=== PATIENT | male | born 1940 | race Caucasian/White ===

== ENCOUNTER 2016-10-15 13:42 | Inpatient (IN) | payer MEDICARE, BC ==
[~2016-10-15] VITALS: Ht 185.4 cm; Wt 76.2 kg
[~2016-10-15 13:42] MED LIST: LEVOXYL125 MCG PO; VITAMIN B-121000 MCG PO; VITAMIN B-12500 MC1 PO; [UNRECOGNIZED DRUG - OTHER] PO
--- NOTE | 2016-10-15 15:00 | NUR ---
PATIENT ARRIVED FROM [facility] WITH AND SON. PATIENT IS ALERT/ORIENT X4. DIAG: CVA POST OP AAA. ADMISSION PAPERS SIGNED BY PATIENT. V/S TAKEN. WT TAKEN. H/P TAKEN. MEDICATIONS ORDERED. DR Kavin ZHU AWARE OF.
[2016-10-15 15:14] VITALS: BP 137/79; BMI 22.3
--- NOTE | 2016-10-15 18:25 | NUR ---
PATIENT STATED HE WAS NOT HUNGRY. DID NOT EAT ANY OF HIS SUPPER. DRANK 240CC OF WATER SINCE ADMISSION
--- NOTE | 2016-10-15 19:30 | NUR ---
PT IS RESTING IN BED WITH EYES OPEN. ALERT AND ORIENTED X 3. DENIES ACUTE DISCOMFORT AT THIS TIME. VSS. MIDLINE CHEST INCISION AND LEFT LEG INCISION ARE HEALING WELL. NO SLURRING OF SPEECH NOTED AT THIS TIME. SR'S ARE UP X 3 IN BED. CALL LIGHT AND BEDSIDE TABLE ARE WITHIN EASY.
--- NOTE | 2016-10-15 19:30 | NUR ---
PT IS RESTING IN BED VISITING WITH FAMILY MEMBERS. ALERT AND ORIENTED X 3. DENIES PAIN OR DISCOMFORT AT THIS TIME. VSS. O2 IS ON @ 3.5 LPM PER NC. PT DENIES NEEDS AT THIS TIME. SR'S ARE UP X 3 IN BED. CALL LIGHT AND BEDSIDE TABLE ARE WITHIN EASY REACH.
[2016-10-15] MEDS ORDERED: PRAVACHOL20 MG PO (20:03)
[2016-10-15] MEDS ORDERED: TOPROL XL25 MG PO (20:04)
[2016-10-15] MEDS ORDERED: COZAAR50 MG PO (20:04)
[2016-10-15] MEDS ORDERED: COLACE100 MG PO (20:04)
[2016-10-15] MEDS ORDERED: HYDROCODON-ACE1 EAC7 PO (20:05)
[2016-10-15] MEDS ORDERED: ASPIRIN EC81 M1 PO (20:06)
--- NOTE | 2016-10-15 21:17 | NUR ---
PT IS RESTING QUIETLY IN BED WITH EYES CLOSED. RESPS ARE EVEN AND UNLABORED. NO ACUTE DISTRESS NOTED.
[2016-10-15 21:42] VITALS: BP 136/78
--- NOTE | 2016-10-16 00:01 | NUR ---
PT ASSISTED TO THE BATHROOM WITH CGA ASSIST. VOIDED WITHOUT DIFFICULTY. NO FURTHER NEEDS VOICED.
--- NOTE | 2016-10-16 03:02 | NUR ---
PT IS RESTING QUIELTY IN BED WITH EYES CLOSED. RESPS ARE EVEN AND UNLABORED. NO ACUTE DISTRESS NOTED.
--- NOTE | 2016-10-16 05:30 | NUR ---
respirations regular and unlabored, no s/s of acute distress. respirations regular and unlabored.
--- NOTE | 2016-10-16 06:11 | NUR ---
PT RESTING IN BED WITH EYES OPEN. NO NEEDS VOICED. AWAITING THERAPY EVALS THIS AM.
[2016-10-16 06:36] LABS: BASOPHILS 0.2 % (0.0-2.0); EOSINOPHILS 3.2 % (0-7); HEMATOCRIT 34.2 % (42.0-54.0); HEMOGLOBIN 11.1 g/dL (13.5-17.5); IMMATURE GRANULOCYTES 0.7 % (0-5); LYMPHOCYTES 11.5 % (15-50); MCH 29.8 pg (26.0-34.0); MCHC 32.5 g/dL (31.0-37.0); MCV 91.7 fL (80.0-100.0); MEAN PLATELET VOLUME 11.5 fL (7.4-10.4); MONOCYTES 10.8 % (2-11); NEUTROPHILS 73.6 % (40-80); RBC 3.73 10x6/uL (4.20-6.10); RDW 13.4 % (11.5-14.5); WBC 12.2 10x3/uL (4.8-10.8)
[2016-10-16 06:37] LABS: PLATELET COUNT 216 10x3/uL (130-400)
[2016-10-16 06:51] LABS: ANION GAP 14.8 mmol/L (8-16); CALCIUM 8.9 mg/dL (8.5-10.1); CREATININE - SERUM 1.2 mg/dL (0.6-1.3); POTASSIUM - SERUM 4.8 mmol/L (3.5-5.1)
[2016-10-16 07:00] VITALS: BP 115/75
--- NOTE | 2016-10-16 07:47 | NUR ---
PATIENT SITTING UP IN BED EATTING BREAKFAST. ALERT/ORIENT X4. WITH SOME SCRAMBLED SPEACH. CALL LIGHT WITHIN REACH. VOICES NO NEEDS
--- NOTE | 2016-10-16 10:30 | NUR ---
PATIENT TURNED MACHINE II ENGRAVER LIGHT TO USE BATHROOM. STAND BY ASST FROM BED TO WHEELCHAIR AND WHEELCHAIR ONTO TOILET. ABLE TO DO OWN DANTE CARE.
--- NOTE | 2016-10-16 12:00 | NUR ---
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 DIET PUT IN PER PATIENT REQUEST.
--- NOTE | 2016-10-16 13:01 | NUR ---
Pt. continues to be stable. visiting. Staff assisting with adl's. No signs of discomfort or distress.
--- NOTE | 2016-10-16 14:01 | NUR ---
DR. Kavin ZHU INTO SEE PATIENT. NEW ORDERS RECIEVED.
--- NOTE | 2016-10-16 16:22 | NUR ---
PATIENT HAS MULTIPLE FAMILY MEMBERS VISITING IN ROOM. VOICES NO NEEDS AT THIS TIME.
--- NOTE | 2016-10-16 19:30 | NUR ---
PT RESTING QUIETLY, SENTENCES DON'T COINCIDE WITH CONVERSATION. PT SMILES APPROPRIATELY, NO S/S OF ACUTE OF DISTRESS.
[2016-10-16 22:05] VITALS: BP 113/67
--- NOTE | 2016-10-17 01:16 | NUR ---
PT RESTING SEMI GRIFFITH POSITION, RESPIRATIONS REGULAR AND UNLABORED, EYES CLOSED, NO S/S OF ACUTE DISTRESS.
--- NOTE | 2016-10-17 04:10 | NUR ---
PT AWAKE, ASSISTED SBA WHILE PT AMBULATED TO BATHROOM, PT GAIT APPEARS SOMEWHAT UNSTABLE, PT SENTENCES DON'T RESPOND APPROPRIATELY WITH QUESTION - FOR EXAMPLE 'HAVE YOU BEEN ABLE TO SLEEP' STATED 'MY SHOULD BE HERE SOON.' PLEASANT, MOBILITY SBA, RESPIRATIONS REGULAR AND UNLABORED, NO S/S OF ACUTE DISTRESS.
[2016-10-17 09:03] VITALS: BP 133/72
[2016-10-17 10:48] VITALS: Ht 185.4 cm; Wt 76.2 kg
--- NOTE | 2016-10-17 13:57 | RHP ---
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 HISTORY OF PRESENT ILLNESS: The patient is a 76-year-old gentleman who is postop day #5 of a repair of an ascending aortic aneurysm with dissection and rupture with hemopericardium on 10/10/2016. Postop, he had a left parietal ischemic infarct. The patient's only past medical history is hypothyroidism. He was awakened by abdominal pain overnight with numbness and weakness in his lower extremities, taken to local ED at [facility] where he was diagnosed with dissecting aortic aneurysm that extended from the ascending down to the level of the renal arteries. He was transferred via helicopter to [facility] for emergency surgical repair. Immediately after surgery and recovery, he was given fresh frozen plasma for an INR of 2.2. This postop coagulopathy resolved at that time. According to progress note, on postop day #1, he became disoriented with altered mental status, right-sided weakness, and disjointed speech. CT of his head revealed an ischemic CVA in the left parietal lobe. Ultrasound of carotids showed no sign of stenosis. The patient is currently alert and oriented to self, place, and other surrounding, follows commands and answer appropriately; however, he is having difficulty finding words and expressing himself. Swallow study has not yet been done, but he is on mechanical soft vegetarian cardiac diet. The patient denies problems with swallowing; however, chest x-ray October 13 showed atelectasis in his left lower lobe as well as small bilateral pleural effusions. The patient is showing right-sided deficits with weakness in his right upper and right lower extremity veering to the right with ambulation and showing signs of peripheral deficits and proprioception according to physical therapy notes. The patient's hemoglobin and hematocrit are stable, but has been declining postoperatively. His current H&H are 9.8 and 30.5, he has a platelet count of 115. He is a pleasant and cooperative gentleman with a good sense of humor and strong spiritual mitch. He has been completely independent prior to this hospitalization, living at home with his and is motivated to return home with previous level of functioning. His recently had a CVA back in July 2016, still recovering, is unable to assist patient very much at this time. She does not drive because of cataracts. The patient has a supportive son who lives in the community, was able to provide transport as needed. Acute inpatient rehab here in the hospital is requested and definitely needed. COMORBIDITIES: In this patient include hypothyroidism, dysphagia, abdominal aortic aneurysm that ruptured, pleural effusion, ischemic CVA, postop coagulopathy, altered mental status, atelectasis of his left lower lobes, small bilateral pleural effusions, and hypothyroidism. PAST MEDICAL HISTORY: Significant really just for hypothyroidism. PAST SURGICAL HISTORY: None, other than repair of dissecting aortic aneurysm. ALLERGIES: No known drug allergies. HISTORY AND PHYSICAL [id number] LEWIS NEGRETE CURRENT MEDICATIONS: Include aspirin chewable 81 mg daily, metoprolol 25 mg daily, Cozaar 50 mg daily, Synthroid 125 mcg daily, hydrocodone 1 tab q. 4 hours p.r.n., Colace 100 mg b.i.d., and Pravachol 20 mg at bedtime. HABITS: No current alcohol or tobacco use. FAMILY HISTORY: Noncontributory. SOCIAL HISTORY: The patient hopes to return home with his spouse and get back to his prior level of functioning, does have a strong family support. REVIEW OF SYSTEMS: GENERAL: Does complain of weakness and fatigue. HEENT: Denies cold, cough, or congestion. CARDIOVASCULAR: Denies chest pain. PHYSICAL EXAMINATION: VITAL SIGNS: Stable, afebrile. GENERAL: A well-developed gentleman in no acute distress, alert upon exam. HEENT: Normocephalic, atraumatic. Mucosa moist. NECK: Supple. No lymphadenopathy. LUNGS: Clear at this time. HEART: Regular rate and rhythm. ABDOMEN: Benign. EXTREMITIES: No clubbing, cyanosis or edema. NEUROLOGIC: Intact. LABORATORY DATA: His white count 12.3, H&H of 11 and 34 and platelet count 216. His sodium is 141, potassium 4.8, BUN and creatinine of 15 and 1.2, and blood sugar is noted to be 81. ASSESSMENT: This is a 76-year-old gentleman admitted to the rehab with a working diagnosis of cerebrovascular accident, status post repair of a dissecting abdominal aortic aneurysm. The patient has potential to make improvement. We instituted the following multidisciplinary therapies included to, but not limited to physical, occupational, respiratory, speech, nutritional services, prosthetics and orthotics. Given his complex condition and risk for more complications, rehabilitation services cannot be provided at a low level of care such as a custodial facility. PLAN: 1. Admit to [facility] rehab for intensive inpatient therapy to include the following disciplines: A. Physical therapy to improve gait, all transfer skills and bed mobility to a modified independent level. B. Occupational therapy to improve activities of daily living to a modified independent level. C. Case management to assist with discharge planning and placement options. D. Nutrition to assist with nutritional needs. E. Rehabilitation nursing to assist in monitoring the patient's underlying medical conditions and to assist with any type of bowel or bladder management. 2. The patient's current medication and medical care will be continued. 3. The patient will be placed on standard fall precautions. 4. The patient's estimated length of stay is approximately 7-10 days. HISTORY AND PHYSICAL [id number] LEWIS NEGRETE 5. Discuss this patient during care team staff meeting this week. TRANSINT:[id number] Voice Confirmation ID: [id number] DOCUMENT ID: [id number] JENNIFER ZHU MD at 1357 CC: [id number] DICTATION DATE: 10/16/16 1301 GEOCHEMICAL LABORATORY TECHNICIAN: 10/16/16 1338 ADM IN [facility] [address] [place] [address]
--- NOTE | 2016-10-17 15:45 | NUR ---
RESTING QUIETLY IN BED. NO S/S DISTRESS. CALL LIGHT IN REACH
--- NOTE | 2016-10-17 19:22 | NUR ---
PT ASSISTED TO THE BATHROOM WITH CGA. VOIDED WITHOUT DIFFICULTY. NO NEEDS VOICED. NO COMPLAINT OF PAIN OR DISCOMFORT VOICED. VSS. SR'S ARE UP X 2 IN BED. CALL LIGHT AND BEDSIDE TABLE ARE WITHIN EASY REACH. BOX ALARM IN USE.
--- NOTE | 2016-10-17 21:43 | NUR ---
PT IS RESTING QUIETLY IN BED WITH EYES CLOSED. RESPS ARE EVEN AND UNLABORED. NO ACUTE DISTRESS NOTED.
[2016-10-17 22:12] VITALS: BP 129/78
--- NOTE | 2016-10-17 23:15 | NUR ---
PT. IN BED WITH HOB UP FOR COMFORT WITH EYES CLOSED AND RESP. EVEN. CALL LIGHT WITHIN REACH.
--- NOTE | 2016-10-18 01:28 | NUR ---
RESTING QUIETLY IN BED WITH EYES CLOSED. RESPS ARE EVEN AND UNLABORED. NO ACUTE DISTRESS NOTED.
--- NOTE | 2016-10-18 03:51 | NUR ---
RESTING IN BED WITH EYES CLOSED.
--- NOTE | 2016-10-18 06:16 | NUR ---
PT RESTING IN BED WITH EYES OPEN. ALERT AND ORIENTED X 4. DENIES ANY DISCOMFORT. DRESSED AND READY FOR THERAPY TODAY.
[2016-10-18 08:34] VITALS: BP 140/89
--- NOTE | 2016-10-18 11:15 | NUR ---
PT TOOK A SHOWER AND COMPLETED BED CHANGED. NO FALLS NOTED.
--- NOTE | 2016-10-18 13:26 | NUR ---
SITTING IN WHEELCHAIR IN THERAPY ROOM. NO NEEDS VOICED.
--- NOTE | 2016-10-18 15:27 | NUR ---
SITTING IN WHEELCHAIR IN GYM WORKING WITH THERAPY.
--- NOTE | 2016-10-18 17:09 | NUR ---
RESTING IN BED WITH SIDERAILS UP X 2.
--- NOTE | 2016-10-18 19:40 | NUR ---
PT. IN BED WITH HOB UP FOR COMFORT AND HAS NO COMPLAINTS/NEEDS AT THIS TIME. ASSESSMENT COMPLETED. CALL LIGHT WITHIN REACH.
[2016-10-18 22:22] VITALS: BP 132/85
--- NOTE | 2016-10-19 | NUR ---
PT. IN BED WITH HOB UP FOR COMFORT WITH EYES CLOSED AND RESP. EVEN. NO VISIBLE DISTRESS OBSERVED. CALL LIGHT WITHIN REACH.
--- NOTE | 2016-10-19 02:10 | NUR ---
PT. REPORTS HE FEELS CONSTIPATED. OFFERRED PT. WARMED PRUNE JUICE AND HE DRANK IT ALL.
--- NOTE | 2016-10-19 06:20 | NUR ---
PT. IN BED WITH HOB UP FOR COMFORT WITH EYES CLOSED AND RESP. EVEN. PT. AWAKENED EASILY FOR HIS MORNING MEDICATIONS AND THEN WENT BACK TO SLEEP. CALL LIGHT WITHIN REACH.
[2016-10-19 06:30] LABS: BASOPHILS 0.1 % (0.0-2.0); EOSINOPHILS 2.9 % (0-7); HEMATOCRIT 35.3 % (42.0-54.0); HEMOGLOBIN 11.2 g/dL (13.5-17.5); IMMATURE GRANULOCYTES 1.5 % (0-5); LYMPHOCYTES 11.9 % (15-50); MCHC 31.7 g/dL (31.0-37.0); MCV 91.5 fL (80.0-100.0); MEAN PLATELET VOLUME 10.7 fL (7.4-10.4); MONOCYTES 11.4 % (2-11); NEUTROPHILS 72.2 % (40-80); RBC 3.86 10x6/uL (4.20-6.10); RDW 13.6 % (11.5-14.5); WBC 12.9 10x3/uL (4.8-10.8)
[2016-10-19 06:41] LABS: PLATELET COUNT 314 10x3/uL (130-400)
[2016-10-19 06:42] LABS: ANION GAP 10.8 mmol/L (8-16); CALCIUM 9.5 mg/dL (8.5-10.1); CREATININE - SERUM 1.1 mg/dL (0.6-1.3); POTASSIUM - SERUM 4.9 mmol/L (3.5-5.1)
[2016-10-19 06:43] LABS: CARBON DIOXIDE 29.1 mmol/L (21.0-32.0)
[2016-10-19 08:27] VITALS: BP 120/79
--- NOTE | 2016-10-19 09:40 | NUR ---
SITTING IN WHEELCHAIR IN GYM TOOK AM PILLS WITH EASE. NO NEEDS VOICED.
--- NOTE | 2016-10-19 11:37 | NUR ---
RESTING IN BED WITH VISITOR IN THE ROOM.
--- NOTE | 2016-10-19 13:03 | NUR ---
SITTING UP IN BED WITHOUT ANY NEEDS VOICED.
--- NOTE | 2016-10-19 15:36 | NUR ---
sitting in wheelchair in the gym talking to denver goetz
--- NOTE | 2016-10-19 16:31 | NUR ---
CARE TEAM MEETING: PATIENT SPOUSE ATTENDED THE MEETING AND TENATIVE DISCHARGE DATE IS 10/21/16. PATIENT WILL HAVE HOME HEALTH AND THAT WILL INCLUDE SPEECH. WILL CONTINUE TO FOLLOW WITH PATIENT UNTIL DISCHARGED. SPOUSE IS TO CHECK TO SEE IF THERE IS A WALKER AT HOME.
--- NOTE | 2016-10-19 17:26 | NUR ---
PT SITTING UP IN BED WITH CALLIGHT IN REACH.
--- NOTE | 2016-10-19 20:48 | NUR ---
RESTING IN BED AROUSES TO VOICE. ALERT ORIENTED CONVERSANT. DENIES NEEDS. NO ACUTE DISTRESS NOTED.
[2016-10-19 23:00] VITALS: BP 139/79
--- NOTE | 2016-10-20 01:19 | NUR ---
RESTING IN BED EYES CLOSED RESPIRATIONS OBSERVED. EVEN AND UNLABORED.
--- NOTE | 2016-10-20 02:20 | NUR ---
RESTING IN BED, EYES CLOSED.
--- NOTE | 2016-10-20 07:48 | NUR ---
PATIENT ALERT/ORIENT X4. SITTING UP AT THE SIDE OF THE BED TO EAT BREAKFAST. CALL LIGHT WITHIN REACH. VOICES NO NEEDS
[2016-10-20 09:32] VITALS: BP 100/66
--- NOTE | 2016-10-20 10:00 | NUR ---
PATIENT WORKING WITH PHYSICAL THERAPIST. WALKING UP AND DOWN THE HALLWAY. STEADY GAIT.
--- NOTE | 2016-10-20 12:17 | NUR ---
Nutrition Follow Up: Pt was in therapy at the time of RD visit. Pt interview deferred at this time. Chart reviewed. Pt scheduled to d/c 10/21/16. Diet: Regular Vegetarian Mech Soft PO Intake: 58% (8 meal avg) +BM 10/19/16 Wt loss of 2# since admit Meds and labs noted Pt with fair po intake at this time. Rec continue current diet. Will continue to provide selective menus and honor food preferences. RD following.
--- NOTE | 2016-10-20 12:18 | NUR ---
PATIENT SITTING UP IN CHAIR AT BEDSIDE EATTING LUNCH. IN ROOM WITH PATIENT.
--- NOTE | 2016-10-20 12:25 | NUR ---
PATIENT DISCHARGING HOPME WITH FAMILY. JANETTE AT HOME WILL PROVIDE NURSING AND SPEECH. PATIENT HAS WALKER , NO OTHER DME NEEDED AT THIS TIME. DR. HARDING 10/26/16 @ 2:15. PATIENT CHOICE FORM FOR HOME HEALTH AND [facility] FORM SIGNED , EXPLAINED AND FILED IN CHART. WILL CONTINUE TO FOLLOW WITH PATIENT UNTIL DISCHARGED
--- NOTE | 2016-10-20 14:08 | NUR ---
PATIENT TO BE DISCHARGED HOME TOMORROW. PATIENT IS INDEPENDANT IN ROOM. WALKING TO AND FROM THE BATHROOM WITH A STEADY GAIT
--- NOTE | 2016-10-20 16:22 | NUR ---
RESTING QUIETLY IN BED.SR UP,CL IN REACH.
--- NOTE | 2016-10-20 16:30 | NUR ---
PATIENT BEING DISCHARGED TO HOME TOMORROW. Yaya SALINAS COMPLETED PATIENTS DISCHARGE PLAN.
[2016-10-20 19:00] VITALS: BP 134/65
--- NOTE | 2016-10-20 19:30 | NUR ---
UP IN W/C AT BEDSIDE. DENIES NEEDS.
--- NOTE | 2016-10-20 21:25 | NUR ---
ASSESSMENT AND HS MEDS COMPLETE. DENIES NEEDS. HAD PATIENT SIGN BED ALARM WAIVER HE WANTS TO BE ABLE TO GO TO BR ALONE, AND USES W/C AND TRANSFERS SAFELY. HE DISCHARGES TOMORROW.
--- NOTE | 2016-10-20 22:10 | NUR ---
RESTING IN BED, EYES CLOSED.
--- NOTE | 2016-10-21 00:15 | NUR ---
RESTING IN BED, EYES CLOSED. NO DISTRESS NOTED.
--- NOTE | 2016-10-21 01:15 | NUR ---
PATIENT UP TO BR TO URINATE. USES W/C SAFELY.
--- NOTE | 2016-10-21 02:15 | NUR ---
RESTING IN BED, EYES CLOSED.
--- NOTE | 2016-10-21 04:10 | NUR ---
RESTING QUIETLY IN BED, EYES CLOSED. RESPIRATIONS UNLABORED.
--- NOTE | 2016-10-21 06:15 | NUR ---
GAVE PATIENT SCHEDULED PROTONIX. EMPTIED 250ML FROM HIS BEDSIDE URINAL.
--- NOTE | 2016-10-21 07:00 | NUR ---
PT WAS RECEIVED AT THE BEGINNING OF THE SHIFT. HE WAS AND IS ALERT AND ORIENTED X 3. HE VOICED NO COMPLAINTS OF PAIN OR DISCOMFORT. STAFF MONITORING AND ASSISTING PRN WITH ADL'S.
[2016-10-21 08:03] LABS: BASOPHILS 0.1 % (0.0-2.0); EOSINOPHILS 2.4 % (0-7); HEMOGLOBIN 11.4 g/dL (13.5-17.5); IMMATURE GRANULOCYTES 1.4 % (0-5); LYMPHOCYTES 10.1 % (15-50); MCH 29.2 pg (26.0-34.0); MCHC 31.7 g/dL (31.0-37.0); MCV 92.1 fL (80.0-100.0); MONOCYTES 8.5 % (2-11); NEUTROPHILS 77.5 % (40-80); PLATELET COUNT 338 10x3/uL (130-400); RBC 3.91 10x6/uL (4.20-6.10); RDW 13.8 % (11.5-14.5); WBC 14.8 10x3/uL (4.8-10.8)
[2016-10-21 08:12] LABS: ANION GAP 11.8 mmol/L (8-16); CARBON DIOXIDE 25.8 mmol/L (21.0-32.0); CREATININE - SERUM 1.1 mg/dL (0.6-1.3); POTASSIUM - SERUM 4.6 mmol/L (3.5-5.1)
[2016-10-21 10:25] VITALS: BP 134/79
--- NOTE | 2016-10-21 14:48 | NUR ---
PT. WAS DISCHARGED FROM REHAB UNIT. HE WAS STABLE UPON LEAVING. HE WAS DISCHARGED WITH PAPERWORK. HIS MEDICATIONS WERE PHONED INTO HIS PHARMACY.
== END 2016-10-21 14:50 | disposition home health service (06) | DRG 65 ==
LOC: D.REHAB 13:42
PROVIDERS: ADMIT Emergency Medicine
DX: I63.9 Cerebral infarction, unspecified (principal); J90 Pleural effusion, not elsewhere classified; J98.11 Atelectasis; E03.9 Hypothyroidism, unspecified; R13.10 Dysphagia, unspecified; R41.82 Altered mental status, unspecified; Z98.890 Other specified postprocedural states; Z66 Do not resuscitate

== ENCOUNTER → 2016-12-06 12:15 | Outpatient (CLI) | payer BC ==
[2016-10-17 10:48] VITALS: BMI 22.1
[~2016-12-06 12:15] MED LIST changes: +ASPIRIN EC81 M1 PO; +COLACE100 MG PO; +COZAAR50 MG PO; +FLAGYL500 MG PO; +HYDROCODON-ACE1 EAC7 PO; +LEVAQUIN750 MG PO; +PRADAXA75 MG PO; +PRAVACHOL20 MG PO; +PROTONIX40 MG PO; +TOPROL XL25 MG PO
[2016-12-06 12:51] LABS: APPEARANCE CLEAR (CLEAR); COLOR YELLOW (YELLOW); LEUKOCYTE ESTERASE NEGATIVE (NEGATIVE); NITRITE NEGATIVE (NEGATIVE); SPECIFIC GRAVITY 1.015 (1.005-1.020)
[2016-12-06 12:52] LABS: BILIRUBIN NEGATIVE (NEGATIVE); GLUCOSE NEGATIVE (NEGATIVE); KETONE NEGATIVE (NEGATIVE); PROTEIN NEGATIVE (NEGATIVE); UROBILINOGEN NORMAL (NORMAL)
[2016-12-06 13:07] LABS: ANION GAP 11.5 mmol/L (8-16); CALCIUM 8.8 mg/dL (8.5-10.1); CREATININE - SERUM 1.2 mg/dL (0.6-1.3); POTASSIUM - SERUM 4.5 mmol/L (3.5-5.1)
== END | disposition home or self-care (01) ==
LOC: D.LAB 12:15
PROVIDERS: Family Medicine
DX: R35.0 Frequency of micturition (principal); R41.0 Disorientation, unspecified; N39.0 Urinary tract infection, site not specified

== ENCOUNTER 2016-12-09 07:21 | Inpatient (IN) | payer MEDICARE, BC ==
[~2016-12-09] VITALS: Ht 185.4 cm; Wt 55.5 kg
[~2016-12-09 07:21] MED LIST changes: -FLAGYL500 MG PO; -LEVAQUIN750 MG PO; -PRADAXA75 MG PO; -PROTONIX40 MG PO
[2016-12-09 08:20] LABS: BASOPHILS 0.1 % (0.0-2.0); EOSINOPHILS 0.7 % (0-7); HEMATOCRIT 36.8 % (42.0-54.0); HEMOGLOBIN 11.5 g/dL (13.5-17.5); IMMATURE GRANULOCYTES 0.4 % (0-5); LYMPHOCYTES 6.8 % (15-50); MCH 27.2 pg (26.0-34.0); MCHC 31.3 g/dL (31.0-37.0); MEAN PLATELET VOLUME 10.9 fL (7.4-10.4); RBC 4.23 10x6/uL (4.20-6.10); RDW 14.4 % (11.5-14.5); WBC 13.7 10x3/uL (4.8-10.8)
[2016-12-09 08:26] LABS: PLATELET COUNT 229 10x3/uL (130-400)
[2016-12-09 08:41] LABS: ALBUMIN 2.7 g/dL (3.4-5.0); ANION GAP 13.2 mmol/L (8-16); BILIRUBIN - TOTAL 0.58 mg/dL (0.2-1.3); CARBON DIOXIDE 26.9 mmol/L (21.0-32.0); CREATININE - SERUM 1.1 mg/dL (0.6-1.3); POTASSIUM - SERUM 4.1 mmol/L (3.5-5.1); PROTEIN - SERUM 5.5 g/dL (6.4-8.2)
[2016-12-09 08:42] LABS: APPEARANCE HAZY (CLEAR); BILIRUBIN NEGATIVE (NEGATIVE); COLOR YELLOW (YELLOW); GLUCOSE NEGATIVE (NEGATIVE); KETONE LARGE mg/dL (NEGATIVE); LEUKOCYTE ESTERASE NEGATIVE (NEGATIVE); NITRITE NEGATIVE (NEGATIVE); PROTEIN NEGATIVE (NEGATIVE); SPECIFIC GRAVITY 1.025 (1.005-1.020); UROBILINOGEN NORMAL (NORMAL)
--- NOTE | 2016-12-09 13:30 | NUR ---
PATIENT TO ROOM AT THIS TIME. ADMITTED AND ASSESSED AT THIS TIME. ORIENTED TO ROOM AND CALL LIGHT. NO COMPLAINTS AT THIS TIME. NO PAIN AT THIS TIME. EXPLAINED SUPPORT REPRESENTATIVE IS AVAILABLE IF NEEDED. FAMILY AT BEDSIDE. CALL LIGHT WITHIN REACH.
[2016-12-09] MEDS ORDERED: PROTONIX40 MG PO (13:33)
[2016-12-09] MEDS ORDERED: PRADAXA75 MG PO (13:34)
[2016-12-09 13:39] VITALS: BMI 20.2
--- NOTE | 2016-12-09 14:00 | NUR ---
IR NURSE IN SPEAKING WITH PATIENT AT THIS TIME ABOUT PROCEDURE. FAMILY AT BEDSIDE. CALL LIGHT WITHIN REACH.
[2016-12-09 14:56] VITALS: BP 134/71
--- NOTE | 2016-12-09 17:15 | NUR ---
CALLED DR. LINDSEY TO SEE IF PATIENT COULD EAT OR DRINK AT THIS TIME SINCE NO IR PROCEDURE. NEW ORDERS RECIEVED AND CARRIED OUT.
--- NOTE | 2016-12-09 18:55 | NUR ---
PATIENT IN BED WITH IV INTACT. NO COMPLAINTS. CALL LIGHT WITHIN REACH.
[2016-12-09 20:00] VITALS: BP 121/55
[2016-12-10] VITALS: BP 107/54
[2016-12-10 04:00] VITALS: BP 100/52
[2016-12-10 06:13] LABS: BASOPHILS 0.1 % (0.0-2.0); EOSINOPHILS 1.4 % (0-7); HEMATOCRIT 33.2 % (42.0-54.0); HEMOGLOBIN 10.2 g/dL (13.5-17.5); IMMATURE GRANULOCYTES 0.3 % (0-5); MCH 26.8 pg (26.0-34.0); MCHC 30.7 g/dL (31.0-37.0); MCV 87.4 fL (80.0-100.0); MEAN PLATELET VOLUME 11.5 fL (7.4-10.4); MONOCYTES 8.4 % (2-11); NEUTROPHILS 81.8 % (40-80); PLATELET COUNT 231 10x3/uL (130-400); RDW 14.3 % (11.5-14.5); WBC 11.3 10x3/uL (4.8-10.8)
[2016-12-10 06:26] LABS: ANION GAP 11.3 mmol/L (8-16); CALCIUM 9.2 mg/dL (8.5-10.1); CARBON DIOXIDE 28.3 mmol/L (21.0-32.0); CREATININE - SERUM 1.2 mg/dL (0.6-1.3); POTASSIUM - SERUM 4.6 mmol/L (3.5-5.1)
--- NOTE | 2016-12-10 07:05 | NUR ---
PT REC'D FROM JAVIER RODRIGUEZ. UP AT BEDSIDE ON PHONE. AAOX4. BED LOW, CALL LIGHT IN REACH, DENIES NEEDS. CPOC.
[2016-12-10 08:49] VITALS: BP 109/62
--- NOTE | 2016-12-10 09:30 | NUR ---
MORNING MEDS GIVEN AT THIS TIME. PUT UP AMBULATING AROUND ROOM. RATING CURRENT PAIN IN ABD 11/11. BED LOW, CALL LIGHT IN REACH, DENIES NEEDS. CPOC.
--- NOTE | 2016-12-10 10:23 | NUR ---
PATIENT IS RESTING IN BED. PATIENT IS AWAKE, ALERT, AND ORIENTED X4. NO COMPLAINTS OF PAIN AT PRESENT TIME. SCHEDULED SYNTHROID 75 MCG IV GIVEN TO PATIENT. PATIENT TOLERATED WELL. PATIENT DENIES ANY NEEDS AT PRESENT TIME. CALL LIGHT IN PATIENT'S REACH. WILL MONITOR.
--- NOTE | 2016-12-10 12:17 | NUR ---
IV SITE TO LEFT WRIST LEAKING. UNABLE TO FLUSH. IV DC'D WITH CATHETER INTACT. PRESSURE DRESSING APPLIED. IV RESITED TO L FOREARM. X1 ATTEMPT WITH 20 GUAGE IV CATHETER. RECONNECTED TO IV TUBING. BED LOW, CALL LIGHT IN REACH, DENIES NEEDS. CPOC.
[2016-12-10 12:47] VITALS: Ht 185.4 cm; Wt 55.5 kg
[2016-12-10 13:11] VITALS: BP 128/63
[2016-12-10 16:32] VITALS: BP 170/71
--- NOTE | 2016-12-10 18:29 | NUR ---
PT RESTING IN BED. IV ABX HUNG. NO COMPLAINTS. BED LOW, CALL LIGHT IN REACH, DENIES NEEDS. CPOC.
--- NOTE | 2016-12-10 19:55 | NUR ---
ASSESSMENT COMPLETED, NO ACUTE DISTRESS NOTED, REQUEST SHOWER, IV DISCONNECTED AND SITE WRAPPED, CL IN REACH, WILL MONITOR
[2016-12-10 20:00] VITALS: BP 132/65
--- NOTE | 2016-12-10 21:17 | NUR ---
IV LOPRESSOR GIVEN PER MAR, CHINO WELL, NO DISTRESS NOTED, DENIES PAIN OR NEEDS, SR'S UP X2, CL IN REACH
--- NOTE | 2016-12-10 22:28 | NUR ---
IV ALEXANDER BROWER PER NOV, DENIES NEEDS, FALL PRECAUTIONS IN PLACE, CL IN REACH
[2016-12-11 01:00] VITALS: BP 142/76
--- NOTE | 2016-12-11 01:43 | NUR ---
IV LOPRESSOR GIVEN PER MAR, CHINO WELL, DENIES NEEDS, CL IN REACH
[2016-12-11 05:00] VITALS: BP 138/83
[2016-12-11 05:57] LABS: BASOPHILS 0.1 % (0.0-2.0); EOSINOPHILS 1.2 % (0-7); HEMATOCRIT 33.7 % (42.0-54.0); HEMOGLOBIN 10.4 g/dL (13.5-17.5); IMMATURE GRANULOCYTES 0.6 % (0-5); LYMPHOCYTES 7.9 % (15-50); MCH 26.8 pg (26.0-34.0); MCHC 30.9 g/dL (31.0-37.0); MCV 86.9 fL (80.0-100.0); MEAN PLATELET VOLUME 11.1 fL (7.4-10.4); MONOCYTES 8.8 % (2-11); NEUTROPHILS 81.4 % (40-80); PLATELET COUNT 221 10x3/uL (130-400); RBC 3.88 10x6/uL (4.20-6.10); RDW 14.5 % (11.5-14.5); WBC 9.8 10x3/uL (4.8-10.8)
[2016-12-11 06:20] LABS: ANION GAP 12.9 mmol/L (8-16); CALCIUM 8.5 mg/dL (8.5-10.1); CARBON DIOXIDE 26.1 mmol/L (21.0-32.0); CREATININE - SERUM 1.3 mg/dL (0.6-1.3)
--- NOTE | 2016-12-11 07:50 | NUR ---
PT REC'D FROM JAVIER GAYTAN. PT RESTING IN BED. AAOX4. RATING CURRENT PAIN IN ABD 2/. IV TO L FOREARM FREE OF REDDNESS AND SWELLING. SARAHMOESS ZhaoA, IN ROOM OBTAINING VS. VSS. BED LOW, CALL LIGHT IN REACH, DENIES NEEDS. CPOC.
[2016-12-11 08:12] VITALS: BP 123/62
--- NOTE | 2016-12-11 08:20 | NUR ---
IVF DECREASED TO 50CC'S/HR PER DR. LINDSEY.
--- NOTE | 2016-12-11 09:10 | NUR ---
PATIENT IS AWAKE, ALERT AND ORIENTED X'S 4. NO SIGNS OF DISTRESS NOTED. ADMINISTERED SYNTHROID, IV ORDERED. PATIENT IS IN BED, HOB 40 DEGREES. PATIENT DENIES NEEDS.
--- NOTE | 2016-12-11 09:27 | NUR ---
MORNING MEDS PASSED AT THIS TIME. IVP LEVOTHYROXINE GIVEN BY JAVIER OROZCO. NO COMPLAINTS. BED LOW, CALL LIGHT IN REACH, DENIES NEEDS. CPOC.
[2016-12-11 12:03] VITALS: BP 144/76
--- NOTE | 2016-12-11 15:36 | NUR ---
PT RESTING IN BED WATCHING TV. NO COMPLAINTS OF PAIN AT THIS TIME. BED LOW, CALL LIGHT IN REACH, DENIES NEEDS. CPOC.
[2016-12-11 16:48] VITALS: BP 131/77
--- NOTE | 2016-12-11 19:50 | NUR ---
PT LYING IN BED TALKING ON PHONE, ASSESSMENT COMPLETED, NO ACUTE DISTRESS NOTED, DENIES PAIN OR NEEDS AT THIS TIME, FALL PRECAUTIONS IN PLACE, CL IN REACH, WILL MONITOR
--- NOTE | 2016-12-11 19:55 | NUR ---
LOPRESSOR GIVEN PER MAR, CHINO WELL, DENIES NEEDS, CL IN REACH
[2016-12-11 21:00] VITALS: BP 161/73
--- NOTE | 2016-12-11 21:10 | NUR ---
AMBULATING IN ROOM, NO DISTRESS NOTED, DENIES NEEDS, CL IN REACH
--- NOTE | 2016-12-11 23:11 | NUR ---
IV AB'S HUNG PER MAR, CHINO WELL, DENIES NEEDS, CL IN REACH
[2016-12-12] VITALS: BP 128/67
--- NOTE | 2016-12-12 01:17 | NUR ---
LOPRESSOR GIVEN PER MAR, CHINO WELL, CL IN REACH
--- NOTE | 2016-12-12 03:40 | NUR ---
RESTING WITH EYES CLOSED, RESP WITH EASE, NO DISTRESS NOTED, FALL PRECAUTIONS IN PLACE, CL IN REACH
[2016-12-12 04:00] VITALS: BP 125/60
[2016-12-12 04:28] LABS: BASOPHILS 0.1 % (0.0-2.0); EOSINOPHILS 1.7 % (0-7); HEMATOCRIT 36.4 % (42.0-54.0); HEMOGLOBIN 11.2 g/dL (13.5-17.5); IMMATURE GRANULOCYTES 0.8 % (0-5); LYMPHOCYTES 11.1 % (15-50); MCH 26.5 pg (26.0-34.0); MCHC 30.8 g/dL (31.0-37.0); MCV 86.3 fL (80.0-100.0); MEAN PLATELET VOLUME 10.9 fL (7.4-10.4); MONOCYTES 9.7 % (2-11); NEUTROPHILS 76.6 % (40-80); RBC 4.22 10x6/uL (4.20-6.10); RDW 14.4 % (11.5-14.5); WBC 12.1 10x3/uL (4.8-10.8)
[2016-12-12 04:33] LABS: PLATELET COUNT 277 10x3/uL (130-400)
[2016-12-12 04:39] LABS: ANION GAP 9.8 mmol/L (8-16); CALCIUM 9.1 mg/dL (8.5-10.1); CARBON DIOXIDE 27.8 mmol/L (21.0-32.0); CREATININE - SERUM 1.1 mg/dL (0.6-1.3); POTASSIUM - SERUM 3.6 mmol/L (3.5-5.1)
--- NOTE | 2016-12-12 04:40 | NUR ---
ALEXANDER BROWER PER CORTNEY, CHINO WELL, DENIES NEEDS, CL IN REACH
--- NOTE | 2016-12-12 07:42 | NUR ---
PT ASSESSMENT COMPLETE NO ACUTE DISTRESS NOTED VOICES ALL NEEDS TO STAFF AWAKE AND ALERT ORINETED X 3 LUNGS CLAER BILATERALLY COMPLAINS OF "IMPACTION" BSA X 4 QUADS DENIES ABDOMINAL TENDERNESS. REQUESTING A LAXITIVE INFORMED PT THAT REQUEST WOULD BE MADE KNOWN TO HIS PHYSICIAN. WILL MONITOR.
[2016-12-12 08:37] VITALS: BP 147/82
--- NOTE | 2016-12-12 09:15 | NUR ---
PT AWAKE SITTING ON SIDE OF BED NO ACUTE DISTRESS NOTED VOCES ALL NEEDS TO STAFF. CALL LIGHT IN REACH SIDE RAILS UP X 2
--- NOTE | 2016-12-12 10:00 | NUR ---
PATIENT ALERT IN MID GRIFFITH POSITION. RESPIRATIONS EVEN AND UNLABORED. SIDE RAILS UP X2. BED IN LOW POSITION. CALL LIGHT IN REACH.
--- NOTE | 2016-12-12 11:39 | NUR ---
NO ACUTE DISTRESS NOTED PT AMBULATING WELL ON UNIT WITH STEADY GAIT AND BALANCE NOTED.
[2016-12-12 12:30] VITALS: BP 133/76
--- NOTE | 2016-12-12 13:27 | NUR ---
Patient Name: LEWIS NEGRETE Admission Status: ER Accout number: [id number] Admission Date: 12-09-2016 : 1940 Admission Diagnosis: Attending: NASIR Current LOS: 3 Anticipated DC Date: 12-14-2016 Planned Disposition: Home Primary Insurance: MEDICARE PART A ONLY Discharge Planning Comments: CM MET WITH PATIENT AND SPOUSE (KIERAN) REGARDING D/C NEEDS AND PLANS. PATIENT STATED HE LIVES WITH HIS AND SHE WILL DRIVE HIM HOME AT DISCHARGE. PATIENT STATED THERE IS A RAMP TO ENTER HOME AND NO STAIRS INSIDE. PATIENTS PCP IS DR. HARDING AND USES [facility] [address] [address] FOR HIS PHARMACY. PATIENT HAS A WALKER, AND WHEELCHAIR AT HOME AND STATED HE IS INDEPENDENT WITH HIS CARE. PATIENT STATED HE IS GOING TO TALK WITH HIS DOCTOR REGARDING SPEECH FROM HIS STROKE. CM ASKED IF HE WANTED SPEECH AT DISCHARGE AND HE STATED HE WOULD TALK TO HIS DOCTOR FIRST. CM WILL CONTINUE TO FOLLOW PATIENT WITH D/C NEEDS AND PLANS. PCP DR. MEAGHAN KOVACS- [phone] SHAWN ([facility]) - [phone] Master Dyer: Marcela Simpson Is the patient Alert and Oriented? Yes 0 * How many steps to enter\exit or inside your home? RAMP 0 * PCP DR. HARDING 0 * [facility]acy [facility] 0 * Preadmission Environment Home with Family 0 * ADLs Independent 0 * Equipment None 0 * List name and contact numbers for known caregivers / representatives who currently or will assist patient after discharge: SHAWN LEONARD (KIERAN---) [phone] * Community resources currently utilized None 0 * Additional services required to return to the preadmission environment? Yes 0 * Can the patient safely return to the preadmission environment? Yes 0 * Has this patient been hospitalized within the prior 30 days at any hospital? No 0 Grand Total: 0
--- NOTE | 2016-12-12 13:40 | NUR ---
GIVEN IV LOPRESSOR PER ORDER TOLERATES WELL. DENIES PAIN OR DISCOMFORT OTHER THATN FEELING CONSTIPATED. BSA X 4 QUADS ABD SOFT AND NON TENDER
--- NOTE | 2016-12-12 15:59 | NUR ---
PT IN SHOWER AT THIS TIME WITH ASSIST OF STAFF. TOLERATING WELL. NO ACUTE DISTRESS NOTED
[2016-12-12 16:53] VITALS: BP 133/65
--- NOTE | 2016-12-12 19:38 | NUR ---
PT UP TO RESTROOM, ASSESSMENT COMPLETED, NO DISTRESS NOTED, IV LOPRESSOR GIVEN PER MAR, CHINO WELL, DENIES PAIN OR NEEDS AT THIS TIME, CL IN REACH, WILL MONITOR
[2016-12-12 20:00] VITALS: BP 133/73
--- NOTE | 2016-12-12 21:20 | NUR ---
LYING IN BED WATCHING TV, DENIES PAIN OR NEEDS, CL IN REACH
--- NOTE | 2016-12-12 22:41 | NUR ---
ALEXANDER BROWER PER CORTNEY, CHINO WELL, PT RESTING WITH EYES CLOSED, CL IN REACH
[2016-12-13 04:00] VITALS: BP 116/59
[2016-12-13 05:22] LABS: BASOPHILS 0.1 % (0.0-2.0); EOSINOPHILS 1.6 % (0-7); HEMATOCRIT 33.9 % (42.0-54.0); HEMOGLOBIN 10.3 g/dL (13.5-17.5); IMMATURE GRANULOCYTES 0.9 % (0-5); LYMPHOCYTES 9.6 % (15-50); MCH 26.5 pg (26.0-34.0); MCHC 30.4 g/dL (31.0-37.0); MCV 87.4 fL (80.0-100.0); MEAN PLATELET VOLUME 10.9 fL (7.4-10.4); MONOCYTES 10.2 % (2-11); NEUTROPHILS 77.6 % (40-80); PLATELET COUNT 243 10x3/uL (130-400); RBC 3.88 10x6/uL (4.20-6.10); RDW 14.4 % (11.5-14.5); WBC 9.9 10x3/uL (4.8-10.8)
[2016-12-13 05:37] LABS: ANION GAP 9.3 mmol/L (8-16); CALCIUM 8.8 mg/dL (8.5-10.1); CARBON DIOXIDE 27.1 mmol/L (21.0-32.0); CREATININE - SERUM 1.1 mg/dL (0.6-1.3); POTASSIUM - SERUM 3.4 mmol/L (3.5-5.1)
--- NOTE | 2016-12-13 07:37 | NUR ---
ASSESSMENT COMPLETE NO ACUTE DISTRESS NTOED VOICES ALL NEEDS TO STAFF AMBULATES WITH STEADY GAIT AD MELITA IN ROOM AND HALLWAY. LUNGS CLAER BIALTERALLY BSA X 4 QUADS ABDOMEN SOFT AND NON TENDER. CALL LIGHT IN REACH WILL MONITOR.
[2016-12-13 08:35] VITALS: BP 148/86
[2016-12-13] MEDS ORDERED: LEVAQUIN750 MG PO (09:23)
[2016-12-13] MEDS ORDERED: FLAGYL500 MG PO (09:24)
--- NOTE | 2016-12-13 09:25 | NUR ---
ALERT IN LOW GRIFFITH POSITION WITH PRIMARY NURSE BASILIO NASCIMENTO AT BEDSIDE. NO SIGNS OF DISTRESS NOTED. SIDE RAILS UP X2. BED IN LOW POSITION. CALL LIGHT IN REACH.
--- NOTE | 2016-12-13 10:42 | NUR ---
NO ACUTE DISTRESS NTOED PT TO DISCHARGE TO HOME TODAY WILL DISCHARGE PER ORDER
--- NOTE | 2016-12-13 10:58 | NUR ---
CM REASSESSMENT NOTE: PATIENT IS DISCHARGING HOME TODAY. FAMILY DRIVING HIM HOME. PATIENT DENIES HOME HEALTH OR ANY OTHER NEEDS. IMM SERVED AND SIGNED
--- NOTE | 2016-12-13 13:30 | NUR ---
PERIPHERIAL IV DISCONTINUED INTACT NO DIFFICULTY OR BLEEDING NOTED. DISCHARGE INSTRUCTIONS GIVEN AND EXPRESSED UNDERSTANDING OF INSTRUCTIONS AND HOW TO TAKE MEDS AND FOLLOW UP APPOINTMENTS LEFT VIA WHEELCHAIR WITH [facility] STAFF TO PRIVATE VEHICLE WITH SPOUSE.
--- NOTE | 2017-01-31 14:51 | DS ---
PATIENT:LEWIS NEGRETE :36 MEDICAL RECORD: [id number] DISCHARGE SUMMARY ADMISSION DATE: 12/09/16 DISCHARGE DATE: 12/13/16 DATE OF ADMISSION: 12/09/2016. DATE OF DISCHARGE: 12/12/2016. ADMISSION DIAGNOSES: 1. Acute diverticulitis with abscess. 2. History of thoracoabdominal aortic dissection. 3. Hypertension. 4. Hypercholesterolemia. 5. Hypothyroidism. DISCHARGE DIAGNOSES: 1. Acute diverticulitis with abscess. 2. History of thoracoabdominal aortic dissection. 3. Hypertension. 4. Hypercholesterolemia. 5. Hypothyroidism. PROCEDURES: None. CONSULTATIONS: None. REPORT OF HOSPITALIZATION: The patient was admitted to the hospital with CT findings of diverticulitis with a small abscess in the pelvis. The patient was admitted n.p.o. and placed on IV Zosyn. He was on Pradaxa initially, but this was held through this hospitalization with a chance that there may need to be percutaneous drainage of the fluid collection. We watch him over the next few days and his symptoms improved significantly. We rechecked the scan and saw that the fluid collection was stable and decided that we would not proceed with any drainage at this point. He was discharged home at that time on Levaquin and Flagyl. DISCHARGE INSTRUCTIONS: He will return to clinic or call if any questions or concerns, fevers, chills, nausea, vomiting or worsening abdominal pain. ACTIVITIES: As tolerated. FOLLOWUP: In clinic with me in 1-2 weeks. DISCHARGE MEDICATIONS: Resume home medications with the inclusion of Levaquin and Flagyl. TRANSINT:[id number] Voice Confirmation ID: [id number] DOCUMENT ID: [id number] DISCHARGE SUMMARY REPORT [id number] LEWIS NEGRETE CHRISTIAN MD at 1451 CC: [id number] DICTATION DATE: 01/06/17 1249 MUSIC MINISTER: 01/07/17 [id number] DIS IN 12/13/16 [place] [id number]
== END 2016-12-13 13:39 | disposition home or self-care (01) | DRG 392 ==
LOC: D.ER 07:21 → D.MS 11:55
PROVIDERS: Emergency Medicine; ADMIT Surgery
DX: K57.20 Diverticulitis of large intestine with perforation and abscess without bleeding (principal); J44.9 Chronic obstructive pulmonary disease, unspecified

== ENCOUNTER → 2016-12-23 07:59 | Outpatient (CLI) | payer BC ==
[2016-12-10 12:47] VITALS: BMI 20.1
[~2016-12-23 07:59] MED LIST changes: +FLAGYL500 MG PO; +LEVAQUIN750 MG PO; +PRADAXA75 MG PO; +PROTONIX40 MG PO
[2016-12-23 08:34] LABS: BASOPHILS 0.2 % (0.0-2.0); HEMATOCRIT 38.9 % (42.0-54.0); HEMOGLOBIN 12.1 g/dL (13.5-17.5); IMMATURE GRANULOCYTES 0.7 % (0-5); LYMPHOCYTES 15.2 % (15-50); MCH 26.6 pg (26.0-34.0); MCHC 31.1 g/dL (31.0-37.0); MCV 85.5 fL (80.0-100.0); MEAN PLATELET VOLUME 12.2 fL (7.4-10.4); MONOCYTES 9.4 % (2-11); NEUTROPHILS 72.5 % (40-80); PLATELET COUNT 210 10x3/uL (130-400); RBC 4.55 10x6/uL (4.20-6.10); WBC 9.8 10x3/uL (4.8-10.8)
[2016-12-23 08:56] LABS: ANION GAP 8.9 mmol/L (8-16); CALCIUM 9.5 mg/dL (8.5-10.1); CARBON DIOXIDE 31.4 mmol/L (21.0-32.0); CREATININE - SERUM 1.4 mg/dL (0.6-1.3); POTASSIUM - SERUM 4.3 mmol/L (3.5-5.1)
== END | disposition home or self-care (01) ==
LOC: D.LAB 12-20 08:00 → D.CT 12-20 09:30
PROVIDERS: Surgery
DX: K57.92 Diverticulitis of intestine, part unspecified, without perforation or abscess without bleeding (principal); L02.818 Cutaneous abscess of other sites

== ENCOUNTER → 2017-11-15 12:57 | Outpatient (CLI) | payer BC ==
[2016-12-10 12:47] VITALS: BMI 20.1
== END | disposition home or self-care (01) ==
LOC: D.CT 12:57
DX: I71.2 Thoracic aortic aneurysm, without rupture (principal); I71.9 Aortic aneurysm of unspecified site, without rupture

== ENCOUNTER → 2018-10-23 09:39 | Outpatient (CLI) | payer BC ==
[2016-12-10 12:47] VITALS: BMI 20.1
== END | disposition home or self-care (01) ==
LOC: D.LAB 09:39 → D.CT 10:30
DX: I71.9 Aortic aneurysm of unspecified site, without rupture (principal)

== ENCOUNTER → 2019-05-15 08:12 | Outpatient (CLI) | payer BC ==
[2016-12-10 12:47] VITALS: BMI 20.1
== END | disposition home or self-care (01) ==
LOC: D.CT 08:12
PROVIDERS: ATTEND Family Medicine
DX: I71.4 Abdominal aortic aneurysm, without rupture (principal)

== ENCOUNTER → 2019-12-10 15:47 | Outpatient (CLI) | payer BC ==
[2016-12-10 12:47] VITALS: BMI 20.1
[2019-12-10 17:14] LABS: BILIRUBIN NEGATIVE (NEGATIVE); GLUCOSE NEGATIVE (NEGATIVE); KETONE NEGATIVE (NEGATIVE); NITRITE NEGATIVE (NEGATIVE); SPECIFIC GRAVITY 1.015 (1.005-1.020); UROBILINOGEN NORMAL (NORMAL)
[2019-12-10 17:15] LABS: BACTERIA MANY /hpf (NEGATIVE); RED CELLS - URINE 0-5 /hpf (0-5); WHITE CELLS - URINE >50 /hpf (NEGATIVE)
== END | disposition home or self-care (01) ==
LOC: D.LABREF 15:47
PROVIDERS: ATTEND Family Medicine
DX: N39.8 Other specified disorders of urinary system (principal)

== ENCOUNTER → 2020-06-17 08:58 | Outpatient (CLI) | payer BC ==
[2016-12-10 12:47] VITALS: BMI 20.1
== END | disposition home or self-care (01) ==
LOC: D.CT 08:58
PROVIDERS: ATTEND Thoracic Surgery (Cardiothoracic Vascular Surgery)
DX: I71.2 Thoracic aortic aneurysm, without rupture (principal); I71.01 Dissection of thoracic aorta

== ENCOUNTER → 2021-03-02 09:05 | Outpatient (CLI) | payer BC ==
[2016-12-10 12:47] VITALS: BMI 20.1
[2021-03-02 09:34] LABS: BASOPHILS 1.2 % (0-2); EOSINOPHILS 4.2 % (0-7); HEMATOCRIT 37.3 % (42.0-54.0); MCH 27.3 pg (26.0-34.0); MCHC 32.1 g/dL (31.0-37.0); MCV 84.9 fL (80.0-100.0); MONOCYTES 7.3 % (2-11); NEUTROPHILS 68.3 % (40-80); PLATELET COUNT 176 10x3/uL (130-400); RBC 4.39 10x6/uL (4.20-6.10); RDW 15.6 % (11.5-14.5); WBC 5.3 10x3/uL (4.8-10.8)
[2021-03-02 10:33] LABS: ALBUMIN 3.5 g/dL (3.4-5.0); ANION GAP 12.2 mmol/L (8-16); BILIRUBIN - TOTAL 0.65 mg/dL (0.2-1.3); CALCIUM 9.4 mg/dL (8.5-10.1); CARBON DIOXIDE 25.8 mmol/L (21.0-32.0); CHOL - HDL RATIO 2.2 ratio (2.3-4.9); CREATININE - SERUM 1.7 mg/dL (0.6-1.3); LDL-HDL RATIO 1.1 ratio (1.5-3.5); PROTEIN - SERUM 6.5 g/dL (6.4-8.2); THYROID STIMULATING HORMONE 0.74 uIU/mL (0.36-3.74)
== END | disposition home or self-care (01) ==
LOC: D.LAB 09:05
PROVIDERS: ATTEND Family Medicine
DX: Z00.00 Encounter for general adult medical examination without abnormal findings (principal); I25.10 Atherosclerotic heart disease of native coronary artery without angina pectoris; E03.9 Hypothyroidism, unspecified; I71.9 Aortic aneurysm of unspecified site, without rupture; F01.50 Vascular dementia, unspecified severity, without behavioral disturbance, psychotic disturbance, mood disturbance, and anxiety